=== PATIENT | female | born 1950 | race Caucasian/White ===

== ENCOUNTER 2020-04-19 09:11 | Day surgery (SDC) | payer MEDICARE ==
[2020-04-13 09:02] VITALS: BMI 27.0
[~2020-04-19 09:11] MED LIST: LACTATED RINGERS 1,000 ML IV SCH; MOXIFLOXACIN HCL 0.5% DROPS 3 ML BTL OP ONE; TETRACAINE 0.5% OPHTH (PF) DROPS 4 ML BTL OP ONE; TIMOLOL 0.5% OPHTH DROPS 5 ML BTL OP ONE
[2020-04-19 09:34] VITALS: TEMP 97.4
[2020-04-19] MEDS: CYCLOPENTOLATE 1% OPHTH SOLN 2 ML BTL OP ONE ×3 (09:35→09:47)
[2020-04-19] MEDS: PHENYLEPHRINE 2.5% OPHTH DRP 2ML OP NR ×3 (09:38→09:50)
[2020-04-19] MEDS ORDERED: HYALURONATE SODIUM INTRAOCULAR 1 EACH SYRINGE (12MG/ML) INTRAOCULA ONE (10:21)
[2020-04-19] MEDS ORDERED: MOXIFLOXACIN HCL 0.5% DROPS 3 ML BTL RIGHT EYE ONE (10:22)
[2020-04-19] MEDS ORDERED: BALANCED SALT IRRIG SOLN COMB2 15 ML IRRIG.SOLN IRRIGATION ONE (10:22)
[2020-04-19] MEDS ORDERED: TIMOLOL 0.5% OPHTH SOLN (PF) 0.2 ML DROPERETTE RIGHT EYE ONE (10:22)
[2020-04-19] MEDS ORDERED: LIDOCAINE 1% (PF) 10MG/ML VIAL SQ ONE (10:22)
[2020-04-19] MEDS ORDERED: fentaNYL (PF) 50 MCG/ML 2 ML AMP ONE (10:23)
[2020-04-19] MEDS ORDERED: MIDAZOLAM 2 MG/2 ML VIAL ONE (10:23)
[2020-04-19] MEDS ORDERED: EPINEPHrine (PF) 0.3 ML in BALANCED SALT IRRIG SOLN COMB2 500 ML IRRIGATION ONE (10:24)
[2020-04-19] MEDS ORDERED: TETRACAINE 0.5% OPHTH (PF) DROPS 4 ML BTL RIGHT EYE ONE (10:46)
--- NOTE | 2020-04-19 10:50 | P.OP ---
Date of Procedure: 04/19/20 Preoperative Diagnosis: NS & CS Postoperative Diagnosis: same Procedure(s) Performed: PIOL, OD Implants: MX60 25.00 Anesthesia: MAC Surgeon: He Heart Pathology: none sent Condition: stable Disposition: same day Indications for Procedure: blurry vision Operative Findings: no complications
[2020-04-19 10:56] VITALS: RESP 16
[2020-04-19 11:08] VITALS: BP 130/72; PULSE 70
--- NOTE | 2020-04-20 00:15 | OP ---
OPERATIVE REPORT DATE OF SURGERY: 04/19/2020 SURGEON: He Heart MD PREOPERATIVE DIAGNOSIS: Nuclear sclerosis, cortical sclerosis. POSTOPERATIVE DIAGNOSIS: Nuclear sclerosis, cortical sclerosis. OPERATION: Phacoemulsification of cataract and intraocular lens implant right eye. ESTIMATED BLOOD LOSS: Zero. SPECIMEN TAKEN: None. NARRATIVE: After obtaining the appropriate consent, the patient was brought to the operating room where the patient was placed under cardiac monitoring and prepped and draped in the usual sterile manner. At the 11 o'clock position a 15 degree super sharp blade was used to create a paracentesis followed by instillation of 1% Xylocaine MPF 50:50 mix with BSS into the anterior chamber. This was followed by Amvisc to stabilize the anterior chamber. At the 9 o'clock position a self-sealing corneal flap incision was created using 2.8 mm joselo keratome. A cystotome was used to initiate a continuous tear capsulorrhexis which was completed with the Utrata forceps. A Binkhorst cannula was used to hydrodissect the lens nucleus followed by hydrodelineation. Phacoemulsification of the lens was performed utilizing phaco chop in 14.65 seconds at % power. The remaining cortical material was removed using the irrigation aspiration mode followed by additional 1% Xylocaine MPF into the anterior chamber followed by viscoelastic to stabilize the capsular bag. A [employer]ch [employer] Lomb MX60, 25.0 diopters posterior chamber lens was placed into the capsular bag without difficulty. The remaining viscoelastic material was removed from the anterior chamber with the irrigation/aspiration. Balanced salt solution was used to normalize the intraocular pressure. The incision was checked for watertight integrity. The patient then received two drops of 0.5% timolol followed by two drops Vigamox, was lightly patched and shielded in the usual manner. There were no complications from the procedure. The patient tolerated the procedure well and was returned to recovery in good condition. MMODL / IJN: [id number] /
== END 2020-04-19 11:21 | disposition home or self-care (01) ==
LOC: OR 09:11
PROVIDERS: ATTEND Ophthalmology
DX: H25.13 Age-related nuclear cataract, bilateral (principal); H25.013 Cortical age-related cataract, bilateral; H00.023 Hordeolum internum right eye, unspecified eyelid; H00.026 Hordeolum internum left eye, unspecified eyelid; H04.129 Dry eye syndrome of unspecified lacrimal gland; H52.03 Hypermetropia, bilateral; H52.4 Presbyopia; Z83.518 Family history of other specified eye disorder; Z80.9 Family history of malignant neoplasm, unspecified; Z82.49 Family history of ischemic heart disease and other diseases of the circulatory system; Z83.49 Family history of other endocrine, nutritional and metabolic diseases; Z87.891 Personal history of nicotine dependence; Z97.3 Presence of spectacles and contact lenses; Z88.2 Allergy status to sulfonamides; Z90.49 Acquired absence of other specified parts of digestive tract; Z98.890 Other specified postprocedural states; Z90.89 Acquired absence of other organs; Z85.828 Personal history of other malignant neoplasm of skin
CPT/HCPCS: 66984; C1780; J2250; J0171; J3010; J2001

== ENCOUNTER 2020-05-03 10:00 | Day surgery (SDC) | payer MEDICARE ==
[2020-04-26 15:53] VITALS: BMI 27.0
[~2020-05-03 10:00] MED LIST changes: +LIDOCAINE 1% (10MG/ML) FOR IV START INTRADERMA PRN
[2020-05-03] MEDS: CYCLOPENTOLATE 1% OPHTH SOLN 2 ML BTL OP ONE ×3 (10:21→10:33)
[2020-05-03] MEDS: PHENYLEPHRINE 2.5% OPHTH DRP 2ML OP NR ×3 (10:24→10:37)
[2020-05-03 10:28] VITALS: TEMP 97.2
[2020-05-03] MEDS ORDERED: MIDAZOLAM 2 MG/2 ML VIAL ONE (11:19)
[2020-05-03] MEDS ORDERED: fentaNYL (PF) 50 MCG/ML 2 ML AMP ONE (11:19)
[2020-05-03] MEDS ORDERED: EPINEPHrine (PF) 0.3 ML in BALANCED SALT IRRIG SOLN COMB2 500 ML IRRIGATION ONE (11:32)
[2020-05-03] MEDS ORDERED: BALANCED SALT IRRIG SOLN COMB2 15 ML IRRIG.SOLN INTRAOCULA ONE (11:33)
[2020-05-03] MEDS ORDERED: HYALURONATE SODIUM INTRAOCULAR 1 EACH SYRINGE (12MG/ML) INTRAOCULA ONE (11:33)
[2020-05-03] MEDS ORDERED: LIDOCAINE 1% (PF) 10MG/ML VIAL MISCELLANE ONE (11:33)
--- NOTE | 2020-05-03 11:47 | P.OP ---
Date of Procedure: 05/03/20 Preoperative Diagnosis: NS & CS Postoperative Diagnosis: same Procedure(s) Performed: PIOL, OS Implants: MX60 24.50 Anesthesia: MAC Surgeon: He Heart Pathology: none sent Condition: stable Disposition: same day Indications for Procedure: blurry vision Operative Findings: no complications
[2020-05-03 11:52] VITALS: RESP 17
[2020-05-03 12:00] VITALS: PULSE 78
[2020-05-03 12:02] VITALS: BP 133/61
--- NOTE | 2020-05-03 23:43 | OP ---
OPERATIVE REPORT DATE OF SURGERY: May 03, 2020 SURGEON: Dr. He Heart PREOPERATIVE DIAGNOSES: Nuclear sclerosis, cortical sclerosis. POSTOPERATIVE DIAGNOSES: Nuclear sclerosis, cortical sclerosis. OPERATION: Phacoemulsification of cataract and intraocular lens implant of the left eye. ESTIMATED BLOOD LOSS: Zero. SPECIMEN TAKEN: None. NARRATIVE: After obtaining the appropriate consent, the patient was brought to the operating room where the patient was placed under cardiac monitoring and prepped and draped in the usual sterile manner. At the 5 o'clock position a 15 degree super sharp blade was used to create a paracentesis followed by instillation of 1% Xylocaine MPF 50:50 mix with BSS into the anterior chamber. This was followed by Amvisc to stabilize the anterior chamber. At the 3 o'clock position a self-sealing corneal flap incision was created using 2.8 mm joselo keratome. A cystotome was used to initiate a continuous tear capsulorrhexis which was completed with the Utrata forceps. A Binkhorst cannula was used to hydrodissect the lens nucleus followed by hydrodelineation. Phacoemulsification of the lens was performed utilizing phaco chop in 9.7 seconds at 14% power. The remaining cortical material was removed using the irrigation aspiration mode followed by additional 1% Xylocaine MPF into the anterior chamber followed by viscoelastic to stabilize the capsular bag. A Bausch [employer] Lomb MX60E 24.5 diopters posterior chamber lens was placed into the capsular bag without difficulty. The remaining viscoelastic material was removed from the anterior chamber with the irrigation/aspiration. Balanced salt solution was used to normalize the intraocular pressure. The incision was checked for watertight integrity. The patient then received two drops of 0.5% timolol followed by two drops Vigamox, was lightly patched and shielded in the usual manner. There were no complications from the procedure. The patient tolerated the procedure well and was returned to recovery in good condition. MMODL / IJN: [id number] /
== END 2020-05-03 12:22 | disposition home or self-care (01) ==
LOC: OR 10:00
PROVIDERS: ATTEND Ophthalmology
DX: H25.12 Age-related nuclear cataract, left eye (principal); H25.012 Cortical age-related cataract, left eye; H52.03 Hypermetropia, bilateral; H04.129 Dry eye syndrome of unspecified lacrimal gland; H00.023 Hordeolum internum right eye, unspecified eyelid; H00.026 Hordeolum internum left eye, unspecified eyelid; H52.4 Presbyopia; Z98.41 Cataract extraction status, right eye; Z96.1 Presence of intraocular lens; Z88.2 Allergy status to sulfonamides; Z90.49 Acquired absence of other specified parts of digestive tract; Z98.891 History of uterine scar from previous surgery; Z90.89 Acquired absence of other organs; Z98.890 Other specified postprocedural states; Z79.899 Other long term (current) drug therapy; Z82.49 Family history of ischemic heart disease and other diseases of the circulatory system; Z83.518 Family history of other specified eye disorder; Z80.9 Family history of malignant neoplasm, unspecified; Z97.3 Presence of spectacles and contact lenses
CPT/HCPCS: 66984; C1780; J2250; J0171; J3010; J2001

== ENCOUNTER → 2021-02-16 | Outpatient (CLI) | payer MEDICARE ==
--- NOTE | 2021-02-19 04:05 | US ---
EXAMINATION TYPE: US carotid duplex BILAT DATE OF EXAM: 02/16/2021 COMPARISON: NONE CLINICAL HISTORY: 70-year-old female R42 dizziness, E78.1 Hypertriglyceridemia. Intermittent dizzy ep isodes for a year TECHNIQUE: Carotid duplex ultrasound examination. Indirect Doppler criteria was utilized. FINDINGS: EXAM MEASUREMENTS: RIGHT: Peak Systolic Velocity (PSV) cm/sec ----- Right CCA: 98.7 ----- Right ICA: 85.1 ----- Right ECA: 92.6 ICA/CCA ratio: 0.8 RIGHT: End Diastole cm/sec ----- Right CCA: 30.5 ----- Right ICA: 33.2 ----- Right ECA: 24.8 LEFT: Peak Systolic Velocity (PSV) cm/sec ----- Left CCA: 94.7 ----- Left ICA: 97.6 ----- Left ECA: 113 ICA/CCA ratio: 1.0 LEFT: End Diastole cm/sec ----- Left CCA: 36.2 ----- Left ICA: 39.0 ----- Left ECA: 32.1 VERTEBRALS (direction of flow): Right Vertebral: Antegrade Left Vertebral: Antegrade Rhythm: Normal Slot Key Person notes: Mild homogeneous plaque with no significant stenosis IMPRESSION: No hemodynamically significant internal carotid artery stenosis on either side. Criteria for Assigning % of Stenosis / Diameter reduction (Estimation based on the indirect measurements of the internal carotid artery velocities (ICA PSV). 1. Normal (no stenosis)=ICA PSV < 125 cm/s: ratio < 2.0: ICA EDV<40 cm/s. 2. Less than 50% stenosis=ICA PSV < 125 cm/s: ratio < 2.0: ICA EDV<40 cm/s. 3. 50 to 69% stenosis=ICA PSV of 125 to 230 cm/s: ration 2.0 ? 4.0: ICA EDV 40-100 cm/s. 4. Greater than 70% stenosis to near occlusion= ICA PSV > 230 cm/s: ratio > 4.0: ICA EDV > 100 cm/s. 5. Near occlusion= ICA PSV velocities may be low or undetectable: variable ratio and ICA EDV. 6. Total occlusion=unable to detect flow.
== END | disposition home or self-care (01) ==
LOC: RADUSWWP 15:34
PROVIDERS: ATTEND Family Medicine
DX: R42 Dizziness and giddiness (principal); E78.1 Pure hyperglyceridemia
CPT/HCPCS: 93880

== ENCOUNTER → 2021-03-28 | Outpatient (CLI) | payer MEDICARE ==
--- NOTE | 2021-03-28 12:08 | XR ---
EXAMINATION TYPE: XR shoulder complete RT DATE OF EXAM: 03/28/2021 CLINICAL HISTORY: Neck pain radiating into shoulder TECHNIQUE: Three views of the right shoulder are obtained. COMPARISON: None. FINDINGS: There is no acute fracture/dislocation evident in the right shoulder. There are degenerati ve changes of the right acromioclavicular joint. IMPRESSION: There is no acute fracture/dislocation evident in the right shoulder. There are degenerative changes of the right acromioclavicular joint.
--- NOTE | 2021-03-28 12:10 | XR ---
EXAMINATION TYPE: XR cervical spine comp DATE OF EXAM: 03/28/2021 TECHNIQUE: Frontal, lateral, oblique, swimmers, and open mouth view of the cervical spine are obtaine d. HISTORY: M54.2 Cervicalgia Neck pain, M25.511 right shoulde COMPARISON: None FINDINGS: Vertebral body heights are preserved. There is mild retrolisthesis of C3 on 4 measuring 4 mm. No enla rgement of the prevertebral soft tissues. There is endplate sclerosis and osteophytosis at C5-7. Ther e is uncovertebral and facet arthropathy with bony encroachment upon the right C6-7 and left C3-4 and C6-7 neural foramen. IMPRESSION: Multilevel disc disease and osteoarthritic changes of the cervical spine with mild retrolisthesis of C3 on 4.
== END | disposition home or self-care (01) ==
LOC: RADXRMAIN 11:15
PROVIDERS: ATTEND Family Medicine
DX: M19.011 Primary osteoarthritis, right shoulder (principal); M50.123 Cervical disc disorder at C6-C7 level with radiculopathy; M47.22 Other spondylosis with radiculopathy, cervical region; M43.12 Spondylolisthesis, cervical region
CPT/HCPCS: 72050

== ENCOUNTER → 2023-03-27 | Outpatient (CLI) | payer MEDICARE ==
--- NOTE | 2023-03-27 10:01 | XR ---
EXAMINATION TYPE: XR lumbosacral spine min 4V DATE OF EXAM: 03/27/2023 CLINICAL HISTORY: pain COMPARISON: NONE TECHNIQUE: Frontal, lateral, and oblique images of the lumbar spine are obtained. FINDINGS: There are 5 lumbar type vertebral bodies identified. The lumbar spine shows satisfactory alignment without evidence of acute fracture or dislocation. Vertebral body heights are within normal limits. Severe multilevel degenerative disc space narrowing and spondylosis. Severe lower lumbar fac et joint arthropathy. The overlying soft tissue appears unremarkable. IMPRESSION: No acute fracture or dislocation is seen in the lumbar spine.ICD 10 NO FRACTURE, INITIAL EVALUATION
== END | disposition home or self-care (01) ==
LOC: RADXRMAIN 09:41
PROVIDERS: ATTEND Family Medicine
DX: M54.41 Lumbago with sciatica, right side (principal); M54.42 Lumbago with sciatica, left side; M79.601 Pain in right arm; M79.602 Pain in left arm
CPT/HCPCS: 72110

== ENCOUNTER → 2023-05-15 | Outpatient (CLI) | payer MEDICARE ==
--- NOTE | 2023-05-15 18:16 | XR ---
EXAMINATION TYPE: XR knee 4V RT DATE OF EXAM: 05/15/2023 COMPARISON: NONE HISTORY: 73-year-old female M25.561, right knee pain and swelling. TECHNIQUE: 4 views FINDINGS: Anterior soft tissue swelling. Extensor mechanism is intact. No joint effusion. There is mi ld joint space narrowing along the lateral aspect of the patellofemoral compartment. Mild degenerativ e spurring medial and patellofemoral compartments. No acute fracture, subluxation, dislocation. IMPRESSION: 1. Mild anterior soft tissue swelling. No acute osseous abnormality seen. 2. Mild patellofemoral compartmental OA. 3. Additional mild degenerative spurring in the medial compartment.
== END | disposition home or self-care (01) ==
LOC: RADXRMAIN 11:02
PROVIDERS: ATTEND Nurse Practitioner Family
DX: M17.11 Unilateral primary osteoarthritis, right knee (principal)

== ENCOUNTER → 2023-05-26 | Outpatient (CLI) | payer MEDICARE ==
--- NOTE | 2023-05-26 13:27 | MM ---
Reason for Exam: Screening (asymptomatic). Last screening mammogram was performed 12 month(s) ago. Patient History: Menarche at age 11. First Full-Term at age 18. Postmenopausal. Maternal aunt had breast cancer. Risk Values: Rhoda 5 year model risk: 1.3%. NCI Lifetime model risk: 3.0%. Prior Study Comparison: 07/01/2006 Bilateral Screening Mammogram, [facility]. 07/08/2006 Left Diagnostic Mammogram, [facility]. 07/20/2007 Bilateral Screening Mammogram, [facility]. 05/18/2021 Bilateral MG 3D screening mammo w/cad, [facility]. 05/24/2022 Bilateral Screening Mammogram, [facility]. Tissue Density: There are scattered fibroglandular densities. Findings: Analyzed By CAD. Asymmetry left breast anterior middle depth cc view not well appreciated on prior 5.4 cm nipple posterior nipple line. Right: There is no suspicious group of microcalcifications or new suspicious mass. Overall Assessment: Incomplete: need additional imaging evaluation, BI-RAD 0 Management: Diagnostic Mammogram of the left breast. [facility] will attempt to contact patient to return for supplemental views and ultrasound if indicated. Patient should continue monthly self-breast exams. A clinical breast exam by your physician is recommended on an annual basis. This exam should not preclude additional follow-up of suspicious palpable abnormalities. Note on Rhoda scores and lifetime risk: 1. A Rhoda score greater than 3% is considered moderate risk. If this is the case, consider specialist referral to assess eligibility for a risk reducing agent. 2. If overall lifetime risk for the development of breast cancer is 20% or higher, the patient may qualify for future screening with alternating mammogram and breast MRI. Electronically signed and approved by: Anish Veliz DO
== END | disposition home or self-care (01) ==
LOC: RADMAMWWP 09:45
PROVIDERS: ATTEND Surgery
DX: Z12.31 Encounter for screening mammogram for malignant neoplasm of breast (principal); Z78.0 Asymptomatic menopausal state; Z80.3 Family history of malignant neoplasm of breast
CPT/HCPCS: 77063; 77067

== ENCOUNTER → 2023-05-29 | Outpatient (CLI) | payer MEDICARE ==
--- NOTE | 2023-05-30 09:47 | MM ---
Reason for Exam: Additional evaluation requested from abnormal screening. Last screening mammogram was performed less than 1 month ago. Patient History: Menarche at age 11. First Full-Term at age 18. Postmenopausal. Maternal aunt had breast cancer. Risk Values: Rhoda 5 year model risk: 1.3%. NCI Lifetime model risk: 3.0%. Prior Study Comparison: 05/18/2021 Bilateral MG 3D screening mammo w/cad, [facility]. 05/24/2022 Bilateral Screening Mammogram, [facility]. 05/26/2023 Bilateral MG 3D screening mammo w/cad, [facility]. Tissue Density: Left: There are scattered fibroglandular densities. Findings: Analyzed By CAD. Density left breast at the 12:00 position is much improved following spot compression imaging however precautionary six-month follow-up is recommended. Overall Assessment: Probably benign, BI-RAD 3 Management: Diagnostic Mammogram of the left breast in 6 months. . Results were given to the patient verbally at the time of exam. Patient should continue monthly self-breast exams. A clinical breast exam by your physician is recommended on an annual basis. This exam should not preclude additional follow-up of suspicious palpable abnormalities. Note on Rhoda scores and lifetime risk: 1. A Rhoda score greater than 3% is considered moderate risk. If this is the case, consider specialist referral to assess eligibility for a risk reducing agent. 2. If overall lifetime risk for the development of breast cancer is 20% or higher, the patient may qualify for future screening with alternating mammogram and breast MRI. Electronically signed and approved by: Eddie Mercer M.D. Radiologis
== END | disposition home or self-care (01) ==
LOC: RADMAMWWP 13:34
PROVIDERS: ATTEND Surgery
DX: R92.8 Other abnormal and inconclusive findings on diagnostic imaging of breast (principal); Z78.0 Asymptomatic menopausal state; Z80.3 Family history of malignant neoplasm of breast
CPT/HCPCS: 77065; G0279; 77061

== ENCOUNTER → 2023-05-29 | Outpatient (CLI) | payer MEDICARE ==
[2023-05-29 14:36] VITALS: BP 122/71; PULSE 72; RESP 16; TEMP 98.7
--- NOTE | 2023-05-29 15:00 | P.PN ---
Subjective Progress Note Date: 05/29/23 pain right breast Jaimee is a 73 year old white female seen in consultation for Tamra Tracy regarding breast pain on 11-08-22. She had a bilateral mammogram 05-24-22 which led to a left breast ultrasound on 06-04-22, this led to a repeat ultrasound on 09-13-22. Her repeat ultrasound was felt to be BIRAD 2. She was having an aching sensation in her left breast in August 2022, this has improved. It was intermittent. It did not spread any place. It was more positional if she laid on that side. She did have a fall where she hit her left breast in the lateral aspect several months prior. She had bruising and ecchymosis at that time. She has never had any surgery on her breast. She does not feel any lumps in her breast at this time. She is not complaining of any nipple discharge. Discomfort that she had a left breast is less constant and has improved. bilateral mammogram on 05-26-23 BIRAD 0 diagnostic left breast mammogram requested Caffiene: occasional nicotine: none stopped in 1990; used to smoke 2 packs/week for 10 years chocolate: occasional BCP: used them for 15 years, stopped about 32 hormones: none Family History: paternal grandfather: cancer ? type Hormonal History: menarche: 11 , breast fed: no, age at first : 18 menopause: 52 Surgical History: appy tonsil knee 2 c-sections resection of burst diverticuli/repeat surgery after the first for infection Medical History: none Social History: nicotine: as above alcohol: occasional drugs: none - Constitutional Constitutional: Denies chills, Denies fever - EENT Eyes: denies blurred vision, denies pain Ears: deny: decreased hearing, tinnitus Ears, nose, mouth and throat: Denies headache, Denies sore throat - Breasts Breasts: bilateral: as per HPI - Cardiovascular Cardiovascular: Denies chest pain, Denies shortness of breath - Gastrointestinal Gastrointestinal: Denies abdominal pain, Denies diarrhea, Denies nausea, Denies vomiting - Genitourinary (Female) Genitourinary: Denies dysuria, Denies hematuria - Menstruation Menstruation: Reports as per HPI - Musculoskeletal Comment: arthritis - Integumentary Integumentary: Denies pruritus, Denies rash - Neurological Neurological: Denies numbness, Denies weakness - Psychiatric Psychiatric: Denies anxiety, Denies depression - Endocrine Endocrine: Denies fatigue, Denies weight change - Hematologic/Lymphatic Comment: none - Allergic/Immunologic Allergic/Immunologic: Reports seasonal allergies Past Medical History Additional Past Medical History / Comment(s): hx skin cancer, History of Any Multi-Drug Resistant Organisms: None Reported Past Surgical History: Appendectomy, Section, Orthopedic Surgery, Tonsillectomy, Tubal Ligation Additional Past Surgical History / Comment(s): rt knee surgery, "surgery to re move burst diverticuli x 2 " Past Anesthesia/Blood Transfusion Reactions: No Reported Reaction Smoking Status: Former smoker - Past Family History Mother Family Medical History: No Reported History Medications and Allergies Home Medications Medication Instructions Recorded Confirmed Type C,E,Zinc,Copper 11/Xzkka3l/Lut 1 each PO DAILY 04/13/20 11/08/22 History [Ocuvite Adult 50 Plus Softgel] Calcium Carbonate/Vitamin D3 2 each PO DAILY 04/13/20 11/08/22 History [Calcium 600-Vit D3 800 Caplet] Cetirizine HCl [Zyrtec] 10 mg PO DAILY 04/13/20 11/08/22 History Glucosam/Kareem-Msm1/C/Ruperto/Bosw 2 each PO DAILY 04/13/20 11/08/22 History [Glucosamine-Chondroitin Tablet] L.acidoph,Paracasei, B.lactis 1 each PO DAILY 04/13/20 11/08/22 History [Probiotic] Magnesium 200 mg PO DAILY 04/13/20 11/08/22 History Multivit-Min/Iron/Folic/Lutein 1 each PO DAILY 04/13/20 11/08/22 History [Centrum Silver Women Tablet] Kingsford-3 Fatty Acids [Kingsford-3] 1,000 mg PO DAILY 04/13/20 11/08/22 History Allergies Allergy/AdvReac Type Severity Reaction Status Date / Time Sulfa (Sulfonamide Allergy Rash/Hives Verified 05/03/20 10:21 Antibiotics) Objective - Vital Signs Vital signs: Vital Signs Temp 98.7 F 05/29/23 14:31 Pulse 72 05/29/23 14:31 Resp 16 05/29/23 14:31 BP 122/71 05/29/23 14:31 Pulse Ox 95 05/29/23 14:31 FiO2 Intake & Output 05/28/23 05/29/23 05/29/23 18:59 06:59 18:59 Weight 68.039 kg - Constitutional General appearance: Present: cooperative - EENT Eyes: Present: EOMI ENT: Present: hearing grossly normal - Neck Neck: Present: normal ROM - Respiratory Respiratory: bilateral: CTA - Cardiovascular Rhythm: regular Heart sounds: normal: S1, S2 - Gastrointestinal General gastrointestinal: Present: soft - Integumentary Integumentary: Present: normal turgor - Musculoskeletal Musculoskeletal: Present: gait normal - Psychiatric Psychiatric: Present: A&O x's 3, appropriate affect, intact judgment & insight - Additional findings Additional findings: Breast Exam: BRA: 42C Inspection: Biateral grade 2/3 ptosis; fungal infection under her left breast Patient: Right breast: Multi-positional exam fibrocystic changes no dominant masses or nodules of concern Right axilla: No adenopathy of concern Left breast: Multi-positional exam fibrocystic changes, mild tenderness to palpation in the upper outer quadrant region but no discrete masses or nodules of concern appreciated Left axilla: No adenopathy of concern Examination of the skin of the left breast . Her last examination revealed a small approximately 8 mm area of nodularity which was being followed by dermatology and has gone away and there not worried about it at this time. Assessment and Plan Assessment: Impression: Left breast mastodynia improved Bilateral mammogram [id number]. This led to [place] [address] BIRAD 3 repeat left breast mammogram in 6 months. Plan: left breast mammogram in 6 months with appointment at that time bilateral mammogram in 1 yearr Patient to follow sooner any questions or concerns nystatin under left breast Patient understands and agrees with the treatment plan. CC: Antoni Flores
== END ==
LOC: WWCWWP 13:37
PROVIDERS: ATTEND Surgery
DX: N64.4 Mastodynia (principal); Z85.828 Personal history of other malignant neoplasm of skin; Z87.891 Personal history of nicotine dependence; Z88.1 Allergy status to other antibiotic agents; Z88.2 Allergy status to sulfonamides

== ENCOUNTER → 2023-09-22 | Outpatient (CLI) | payer MEDICARE ==
--- NOTE | 2023-09-22 11:23 | XR ---
EXAMINATION TYPE: XR chest 2V DATE OF EXAM: 09/22/2023 11:15 AM CLINICAL INDICATION:Female, 73 years old with history of PRE SURG TESTING; [facility] COMPARISON: None TECHNIQUE: XR chest 2V Frontal and lateral views of the chest. FINDINGS: Lungs/Pleura: There is no evidence of pleural effusion, focal consolidation, or pneumothorax. Pulmonary vascularity: Unremarkable. Heart/mediastinum: Cardiomediastinal silhouette is unremarkable. Musculoskeletal: No acute osseous pathology. Other findings: None IMPRESSION: No acute cardiopulmonary disease/process.
[2023-09-22 12:18] LABS: INR 0.9 (<1.2); Partial Thromboplastin Time 23.5 sec (22.0-30.0); Prothrombin Time 10.3 sec (10.0-12.5)
[2023-09-22 15:51] LABS: Basophils # (A) 0.03 X 10*3/uL (0.00-0.10); Basophils % (A) 0.4 %; Eosinophils # (A) 0.08 X 10*3/uL (0.04-0.35); HCT 42.8 % (37.2-46.3); HGB 14.2 g/dL (12.0-15.0); Lymphocytes # (A) 1.94 X 10*3/uL (0.90-5.00); Lymphocytes % (A) 24.9 %; MCH 32.5 pg (27.0-32.0); MCHC 33.2 g/dL (32.0-37.0); MCV 97.9 FL (80.0-97.0); Mean Platelet Volume 9.3 FL (9.5-12.2); Monocytes # (A) 0.46 X 10*3/uL (0.20-1.00); Monocytes % (A) 5.9 %; NRBC Per 100 WBC 0 X 10*3/uL (0.00-0.01); Neutrophils # (A) 5.27 X 10*3/uL (1.80-7.70); Neutrophils % (A) 67.5 %; Platelet Count 313 X 10*3/uL (140-440); RBC 4.37 X 10*6/uL (4.10-5.20); RDW 12.7 % (11.5-14.5)
[2023-09-22 16:14] LABS: Appearance,Urine Clear (Clear); Bilirubin,Urine Negative (Negative); Blood,Urine Negative (Negative); Color,Urine Yellow (Yellow); Ketones,Urine Negative (Negative); Nitrite,Urine Negative (Negative); PH, Urine 6.5; Specific Gravity,Urine 1.008 (1.001-1.030); Urobilinogen,Urine 0.2 E.U./DL
[2023-09-22 16:20] LABS: Bacteria,Urine 3+ (None Seen)
[2023-09-22 16:29] LABS: ALT 19 U/L (8-44); AST 30 U/L (13-35); Albumin 4.4 g/dL (3.8-4.9); Albumin/Globulin Ratio 1.63 Ratio (1.60-3.17); Alkaline Phosphatase 97 U/L (41-126); BUN/Creat Ratio 14.17 Ratio (12.00-20.00); Blood Urea Nitrogen 8.5 mg/dL (9.0-27.0); Calcium 9.9 mg/dL (8.7-10.3); Carbon Dioxide 26.1 mmol/L (21.6-31.8); Chloride 104 mmol/L (96-109); Globulin 2.7 g/dL (1.6-3.3); Glucose 90 mg/dL (70-110); Potassium 4.6 mmol/L (3.5-5.5); Sodium 142 mmol/L (135-145); Total Bilirubin 0.6 mg/dL (0.3-1.2); Total Protein 7.1 g/dL (6.2-8.2)
== END | disposition home or self-care (01) ==
LOC: LABWHC1 10:44
PROVIDERS: ATTEND Neurological Surgery
DX: Z01.818 Encounter for other preprocedural examination (principal)
CPT/HCPCS: 36415; 71046; 80053; 81001; 85025; 85610; 85730; 87070; 93005

== ENCOUNTER → 2023-11-28 | Outpatient (CLI) | payer MEDICARE ==
--- NOTE | 2023-11-28 12:40 | MM ---
Reason for Exam: Follow-up at short interval from prior study. Last screening mammogram was performed 6 month(s) ago. Patient History: Menarche at age 11. First Full-Term at age 18. Postmenopausal. Maternal aunt had breast cancer, age 80. Risk Values: Rhoda 5 year model risk: 1.3%. NCI Lifetime model risk: 3.0%. Prior Study Comparison: 05/24/2022 Bilateral Screening Mammogram, [facility]. 05/26/2023 Bilateral MG 3D screening mammo w/cad, [facility]. 05/29/2023 Left MG 3D work up w/cad , [facility]. Tissue Density: Left: The breasts are almost entirely fatty. Findings: Analyzed By CAD. Area of concern/asymmetry compresses out on spot compression imaging. No suspicious masses, calcifications or distortions. Overall Assessment: Benign, BI-RAD 2 Management: Screening Mammogram of both breasts in 6 months. Results were given to the patient verbally at the time of exam. Patient should continue monthly self-breast exams. A clinical breast exam by your physician is recommended on an annual basis. This exam should not preclude additional follow-up of suspicious palpable abnormalities. Note on Rhoda scores and lifetime risk: 1. A Rhoda score greater than 3% is considered moderate risk. If this is the case, consider specialist referral to assess eligibility for a risk reducing agent. 2. If overall lifetime risk for the development of breast cancer is 20% or higher, the patient may qualify for future screening with alternating mammogram and breast MRI. Electronically signed and approved by: Anish Veliz DO
== END | disposition home or self-care (01) ==
LOC: RADMAMWWP 12:11
PROVIDERS: ATTEND Surgery
DX: R92.312 Mammographic fatty tissue density, left breast (principal); Z78.0 Asymptomatic menopausal state; Z80.3 Family history of malignant neoplasm of breast
CPT/HCPCS: 77065; G0279; 77061

== ENCOUNTER → 2023-12-05 | Outpatient (CLI) | payer MEDICARE ==
--- NOTE | 2023-12-05 11:28 | P.PN ---
Subjective Progress Note Date: 12/05/23 Principal diagnosis: mastodynia 12-05-23 pain left breast Jaimee is a 73 year old white female seen in consultation for Tamra Tracy regarding breast pain on 11-08-22. She had a bilateral mammogram 05-24-22 which led to a left breast ultrasound on 06-04-22, this led to a repeat ultrasound on 09-13-22. Her repeat ultrasound was felt to be BIRAD 2. She was having an aching sensation in her left breast in August 2022, this has improved. It was intermittent. It did not spread any place. It was more positional if she laid on that side. She did have a fall where she hit her left breast in the lateral aspect several months prior. She had bruising and ecchymosis at that time. She has never had any surgery on her breast. She does not feel any lumps in her breast at this time. She is not complaining of any nipple discharge. Discomfort that she had a left breast is less constant and has improved. bilateral mammogram on 05-26-23 BIRAD 0 diagnostic left breast mammogram requested; this was done on 05-29-23 and repeat in 6 months of the let breast recommended left breast mammogram 11-28-23 BIRAD 2 she is not complaining of any new lumps masses or nodules of concern in either breast She is not complaining of pain in her left breast at this time Caffiene: occasional nicotine: none stopped in 1990; used to smoke 2 packs/week for 10 years chocolate: occasional BCP: used them for 15 years, stopped about 32 hormones: none Family History: paternal grandfather: cancer ? type Hormonal History: menarche: 11 , breast fed: no, age at first : 18 menopause: 52 Surgical History: appy tonsil knee 2 c-sections resection of burst diverticuli/repeat surgery after the first for infection back fusion 6 weeks ago Medical History: none Social History: nicotine: as above alcohol: occasional drugs: none - Constitutional Constitutional: Denies chills, Denies fever - EENT Eyes: denies blurred vision, denies pain Ears: deny: decreased hearing, tinnitus Ears, nose, mouth and throat: Denies headache, Denies sore throat - Breasts Breasts: bilateral: as per HPI - Cardiovascular Cardiovascular: Denies chest pain, Denies shortness of breath - Gastrointestinal Gastrointestinal: Denies abdominal pain, Denies diarrhea, Denies nausea, Denies vomiting - Genitourinary (Female) Genitourinary: Denies dysuria, Denies hematuria - Menstruation Menstruation: Reports as per HPI - Musculoskeletal Comment: arthritis - Integumentary Integumentary: Denies pruritus, Denies rash - Neurological Neurological: Denies numbness, Denies weakness - Psychiatric Psychiatric: Denies anxiety, Denies depression - Endocrine Endocrine: Denies fatigue, Denies weight change - Hematologic/Lymphatic Comment: none - Allergic/Immunologic Allergic/Immunologic: Reports seasonal allergies Past Medical History Additional Past Medical History / Comment(s): hx skin cancer, History of Any Multi-Drug Resistant Organisms: None Reported Past Surgical History: Appendectomy, Section, Orthopedic Surgery, Tonsillectomy, Tubal Ligation Additional Past Surgical History / Comment(s): rt knee surgery, "surgery to remove burst diverticuli x 2 " Past Anesthesia/Blood Transfusion Reactions: No Reported Reaction Smoking Status: Former smoker - Past Family History Mother Family Medical History: No Reported History Medications and Allergies Home Medications Medication Instructions Recorded Confirmed Type C,E,Zinc,Copper 11/Qwkts1v/Lut 1 each PO DAILY 04/13/20 11/08/22 History [Ocuvite Adult 50 Plus Softgel] Calcium Carbonate/Vitamin D3 2 each PO DAILY 04/13/20 11/08/22 History [Calcium 600-Vit D3 800 Caplet] Cetirizine HCl [Zyrtec] 10 mg PO DAILY 04/13/20 11/08/22 History Glucosam/Kareem-Msm1/C/Ruperto/Bosw 2 each PO DAILY 04/13/20 11/08/22 History [Glucosamine-Chondroitin Tablet] L.acidoph,Paracasei, B.lactis 1 each PO DAILY 04/13/20 11/08/22 History [Probiotic] Magnesium 200 mg PO DAILY 04/13/20 11/08/22 History Multivit-Min/Iron/Folic/Lutein 1 each PO DAILY 04/13/20 11/08/22 History [Centrum Silver Women Tablet] [place]-3 Fatty Acids [[place]-3] 1,000 mg PO DAILY 04/13/20 11/08/22 History Allergies Allergy/AdvReac Type Severity Reaction Status Date / Time Sulfa (Sulfonamide Allergy Rash/Hives Verified 05/03/20 10:21 Antibiotics) Objective - Vital Signs Vital signs: Vital Signs Temp 98.4 F 12/05/23 11:10 Pulse 79 12/05/23 11:10 Resp 16 12/05/23 11:10 BP 130/76 12/05/23 11:10 Pulse Ox 96 12/05/23 11:10 FiO2 Intake & Output 12/04/23 12/05/23 12/05/23 18:59 06:59 18:59 Weight 68.039 kg - Constitutional General appearance: Present: cooperative - EENT Eyes: Present: EOMI ENT: Present: hearing grossly normal - Neck Neck: Present: normal ROM - Respiratory Respiratory: bilateral: CTA - Cardiovascular Heart sounds: normal: S1, S2 - Integumentary Integumentary: Present: normal turgor - Musculoskeletal Musculoskeletal: Present: gait normal - Psychiatric Psychiatric: Present: A&O x's 3, appropriate affect, intact judgment & insight - Additional findings Additional findings: Breast Exam: BRA: 42C Inspection: Biateral grade 2/3 ptosis; Patient: Right breast: Multi-positional exam fibrocystic changes no dominant masses or nodules of concern Right axilla: No adenopathy of concern Left breast: Multi-positional exam fibrocystic changes, mild tenderness to palpation in the upper outer quadrant region but no discrete masses or nodules of concern appreciated Left axilla: No adenopathy of concern Assessment and Plan Assessment: Impression: Left breast mastodynia improved Bilateral mammogram [id number]. This led to [place] [address] BIRAD 3 repeat left breast mammogram in 6 months, repeat left breast mammogram on 11-28-23 BIRAD 2 Plan: bilateral mammogram in 2023 with appointment at that time Patient to follow sooner any questions or concern Patient understands and agrees with the treatment plan. CC: Antoni Flores
[2023-12-05 11:38] VITALS: BP 130/76; PULSE 79; RESP 16; TEMP 98.4
== END ==
LOC: WWCWWP 10:33
PROVIDERS: ATTEND Surgery
DX: N64.4 Mastodynia (principal); Z87.891 Personal history of nicotine dependence; Z88.2 Allergy status to sulfonamides

== ENCOUNTER → 2024-05-28 | Outpatient (CLI) | payer MEDICARE ==
--- NOTE | 2024-05-30 15:06 | MM ---
Reason for Exam: Screening (asymptomatic). Last screening mammogram was performed 12 month(s) ago. Patient History: Menarche at age 11. First Full-Term at age 18. Postmenopausal. Maternal aunt had breast cancer, age 80. Risk Values: Rhoda 5 year model risk: 1.3%. NCI Lifetime model risk: 2.8%. Prior Study Comparison: 05/26/2023 Bilateral MG 3D screening mammo w/cad, [facility]. 05/29/2023 Left MG 3D work up w/cad LT, [facility]. 11/28/2023 Left MG 3D diag mammo w/cad LT, [facility]. Tissue Density: The breasts are almost entirely fatty. Findings: Analyzed By CAD. The pattern is symmetrical. Scattered benign round calcifications are present bilaterally. Chronic nodularities in the upper right breast. There is a rounded density with multiple punctate calcifications. Additional workup with ultrasound is recommended. This is measuring 0.4 cm and is located 5 cm in the nipple.The pattern is symmetrical. Scattered benign round calcifications are present bilaterally. Chronic nodularities in the upper right breast. There is a rounded density with multiple punctate calcifications upper inner 1:00 position right breast. Additional workup with ultrasound is recommended. This is measuring 0.4 cm and is located 5 cm in the nipple. Overall Assessment: Incomplete: need additional imaging evaluation, BI-RAD 0 Management: Diagnostic Breast Ultrasound of the right breast. A negative mammogram report should not preclude additional follow up of suspicious palpable abnormalities. Patient should continue monthly self breast exam. A clinical breast exam by your physician is recommended on an annual basis and results should be correlated with mammographic findings. Note on Rhoda scores and lifetime risk: 1. A Rhoda score greater than 3% is considered moderate risk. If this is the case, consider specialist referral to assess eligibility for a risk reducing agent. 2. If overall lifetime risk for the development of breast cancer is 20% or higher, the patient may qualify for future screening with alternating mammogram and breast MRI. [facility], , 05/30/2024 3:03 PM. Electronically signed and approved by: Donn Patel D.O. Radiologis
== END | disposition home or self-care (01) ==
LOC: RADMAMWWP 12:11
PROVIDERS: ATTEND Surgery
DX: Z12.31 Encounter for screening mammogram for malignant neoplasm of breast
CPT/HCPCS: 77063; 77067

== ENCOUNTER → 2024-06-01 | Outpatient (CLI) | payer MEDICARE ==
--- NOTE | 2024-06-01 14:31 | USB ---
Reason for Exam: Follow-up at short interval from prior study. Patient History: Menarche at age 11. First Full-Term at age 18. Postmenopausal. Maternal aunt had breast cancer, age 80. Risk Values: Rhoda 5 year model risk: 1.3%. NCI Lifetime model risk: 2.8%. Technique: Method: Targeted. Prior Study Comparison: 05/29/2023 Left MG 3D work up w/cad LT, [facility]. 11/28/2023 Left MG 3D diag mammo w/cad LT, [facility]. 05/28/2024 Bilateral MG 3D screening mammo w/cad, [facility]. Findings: The upper inner quadrant of the right breast, the axilla of the right breast and the retroareolar of the right breast were scanned. No solid or cystic masses are identified. Mammographic finding 0.4 cm 5 cm the nipple 12:00 position is not identified. Stereotactic core biopsy of this mass is recommended. No solid or cystic masses are identified. Mammographic finding 0.4 cm 2.5 cm the nipple 12:00 position is not identified on ultrasound. Stereotactic core biopsy of mammographic mass is recommended. Overall Assessment: Suspicious, BI-RAD 4 Management: Stereotactic Core Biopsy of the right breast. A clinical breast exam by your physician is recommended on an annual basis and results should be correlated with mammographic findings. This exam should not preclude additional follow-up of suspicious palpable abnormalities. Results were given to the patient verbally at the time of exam. [facility], , 06/01/2024 11:32 AM. Electronically signed and approved by: Donn Patel D.O. Radiologis
== END | disposition home or self-care (01) ==
LOC: RADUSWWP 10:48
PROVIDERS: ATTEND Surgery
DX: R92.8 Other abnormal and inconclusive findings on diagnostic imaging of breast

== ENCOUNTER → 2024-06-03 | Outpatient (CLI) | payer MEDICARE ==
--- NOTE | 2024-06-03 12:56 | P.PN ---
Subjective Progress Note Date: 06/03/24 Principal diagnosis: breast pain 12/05/23 Principal diagnosis: mastodynia 12-05-23 pain left breast Jaimee is a 73 year old white female seen in consultation for Tamra Tracy regarding breast pain on 11-08-22. She had a bilateral mammogram 05-24-22 which led to a left breast ultrasound on 06-04-22, this led to a repeat ultrasound on 09-13-22. Her repeat ultrasound was felt to be BIRAD 2. She was having an aching sensation in her left breast in August 2022, this has improved. It was intermittent. It did not spread any place. It was more positional if she laid on that side. She did have a fall where she hit her left breast in the lateral aspect several months prior. She had bruising and ecchymosis at that time. She has never had any surgery on her breast. She does not feel any lumps in her breast at this time. She is not complaining of any nipple discharge. Discomfort that she had a left breast is less constant and has improved. bilateral mammogram on 05-26-23 BIRAD 0 diagnostic left breast mammogram requested; this was done on 05-29-23 and repeat in 6 months of the let breast recommended left breast mammogram 11-28-23 BIRAD 2 she is not complaining of any new lumps masses or nodules of concern in either breast She is not complaining of pain in her left breast at this time 06-03-24 Bilateral mammogram on 05-28-24 BIRAD 0; right breast ultrasound on 06-01-24 recommended a right breast stero biopsy radiographs personally reviewed and discussed with DR. Kang The breast pain has resolved. She is not complaining of any new lumps masses or nodules of concern in either breast. Caffiene: occasional nicotine: none stopped in 1990; used to smoke 2 packs/week for 10 years chocolate: occasional BCP: used them for 15 years, stopped about 32 hormones: none Family History: paternal grandfather: cancer ? type Hormonal History: menarche: 11 , breast fed: no, age at first : 18 menopause: 52 Surgical History: appy tonsil knee 2 c-sections resection of burst diverticuli/repeat surgery after the first for infection back fusion Medical History: none Social History: nicotine: as above alcohol: occasional drugs: none - Constitutional Constitutional: Denies chills, Denies fever - EENT Eyes: denies blurred vision, denies pain Ears: deny: decreased hearing, tinnitus Ears, nose, mouth and throat: Denies headache, Denies sore throat - Breasts Breasts: bilateral: as per HPI - Cardiovascular Cardiovascular: Denies chest pain, Denies shortness of breath - Gastrointestinal Gastrointestinal: Denies abdominal pain, Denies diarrhea, Denies nausea, Denies vomiting - Genitourinary (Female) Genitourinary: Denies dysuria, Denies hematuria - Menstruation Menstruation: Reports as per HPI - Musculoskeletal Comment: arthritis - Integumentary Integumentary: Denies pruritus, Denies rash - Neurological Neurological: Denies numbness, Denies weakness - Psychiatric Psychiatric: Denies anxiety, Denies depression - Endocrine Endocrine: Denies fatigue, Denies weight change - Hematologic/Lymphatic Comment: none - Allergic/Immunologic Allergic/Immunologic: Reports seasonal allergies Past Medical History Additional Past Medical History / Comment(s): hx skin cancer, History of Any Multi-Drug Resistant Organisms: None Reported Past Surgical History: Appendectomy, Section, Orthopedic Surgery, Tonsillectomy, Tubal Ligation Additional Past Surgical History / Comment(s): rt knee surgery, "surgery to remove burst diverticuli x 2 " Past Anesthesia/Blood Transfusion Reactions: No Reported Reaction Smoking Status: Former smoker - Past Family History Mother Family Medical History: No Reported History Medications and Allergies Home Medications Medication Instructions Recorded Confirmed Type C,E,Zinc,Copper 11/Ysikj2c/Lut 1 each PO DAILY 04/13/20 11/08/22 History [Ocuvite Adult 50 Plus Softgel] Calcium Carbonate/Vitamin D3 2 each PO DAILY 04/13/20 11/08/22 History [Calcium 600-Vit D3 800 Caplet] Cetirizine HCl [Zyrtec] 10 mg PO DAILY 04/13/20 11/08/22 History Glucosam/Kareem-Msm1/C/Ruperto/Bosw 2 each PO DAILY 04/13/20 11/08/22 History [Glucosamine-Chondroitin Tablet] L.acidoph,Paracasei, B.lactis 1 each PO DAILY 04/13/20 11/08/22 History [Probiotic] Magnesium 200 mg PO DAILY 04/13/20 11/08/22 History Multivit-Min/Iron/Folic/Lutein 1 each PO DAILY 04/13/20 11/08/22 History [Centrum Silver Women Tablet] [place]-3 Fatty Acids [[place]-3] 1,000 mg PO DAILY 04/13/20 11/08/22 History Allergies Allergy/AdvReac Type Severity Reaction Status Date / Time Sulfa (Sulfonamide Allergy Rash/Hives Verified 05/03/20 10:21 Antibiotics) Objective - Constitutional General appearance: Present: cooperative - EENT Eyes: Present: EOMI ENT: Present: hearing grossly normal - Neck Neck: Present: normal ROM - Respiratory Respiratory: bilateral: CTA - Cardiovascular Heart sounds: normal: S1, S2 - Integumentary Integumentary: Present: normal turgor - Musculoskeletal Musculoskeletal: Present: gait normal - Psychiatric Psychiatric: Present: A&O x's 3, appropriate affect, intact judgment & insight - Additional findings Additional findings: Breast Exam: BRA: 42C Inspection: Biateral grade 2/3 ptosis; Patient: Right breast: Multi-positional exam fibrocystic changes no dominant masses or nodules of concern Right axilla: No adenopathy of concern Left breast: Multi-positional exam fibrocystic changes, mild tenderness to palpation in the upper outer quadrant region but no discrete masses or nodules of concern appreciated; fungal infection under the left breast Left axilla: No adenopathy of concern; Assessment and Plan Assessment: Impression: mastodynia resolved fungal infection under left breast bilateral mammogram 05-10-24 suspecious BIRAD 4, ultrasound 06-01-24 suspecious BIRAD 4 needs stero biopsy of the right breast Plan: sterobiopsy of the right breast nystatin under the left breast Risk of the procedure discussed with the patient. Risk include but are not limited to bleeding, infection, reaction to the anesthetic. If the tissue tissue specimen were felt to be discordant then further tissue acquisition may be necessary. She understands and wishes to proceed. Patient understands and agrees with the treatment plan. CC: Antoni Flores
[2024-06-03 13:13] VITALS: BP 116/77; PULSE 76; RESP 18; TEMP 98.3
== END ==
LOC: WWCWWP 12:35
PROVIDERS: ATTEND Surgery
DX: R92.8 Other abnormal and inconclusive findings on diagnostic imaging of breast (principal); Z87.891 Personal history of nicotine dependence; Z88.2 Allergy status to sulfonamides

== ENCOUNTER → 2024-06-11 | Day surgery (SDC) | payer MEDICARE ==
[2024-06-11 07:58] VITALS: BP 157/84; PULSE 67; RESP 16; TEMP 97.8
[2024-06-11] MEDS: ALPRAZolam 0.25 MG TAB PO PRN (08:18)
--- NOTE | 2024-06-11 09:28 | USB ---
Reason for Exam: Additional evaluation requested from prior study. Patient History: Menarche at age 11. First Full-Term at age 18. Postmenopausal. Maternal aunt had breast cancer, age 80. Risk Values: Rhoda 5 year model risk: 1.3%. NCI Lifetime model risk: 2.8%. Technique: Method: Targeted. Doppler: Color. Patient Position: Supine. Prior Study Comparison: 05/29/2023 Left MG 3D work up w/cad LT, [facility]. 11/28/2023 Left MG 3D diag mammo w/cad LT, [facility]. 05/28/2024 Bilateral MG 3D screening mammo w/cad, [facility]. Findings: The upper inner quadrant of the right breast was scanned. Hyperechoic superficial lesion in the right 1:00 position 3 cm from the nipple measuring 0.8 x 0.5 cm. Tissue diagnosis is recommended.. Overall Assessment: Suspicious, BI-RAD 4 Management: Ultrasound Core Biopsy of the right breast. A clinical breast exam by your physician is recommended on an annual basis and results should be correlated with mammographic findings. This exam should not preclude additional follow-up of suspicious palpable abnormalities. Results were given to the patient verbally at the time of exam. [facility], , 06/11/2024 9:25 AM. Electronically signed and approved by: Eddie Mercer M.D. Radiologis
--- NOTE | 2024-06-24 09:58 | MM ---
Risk Values: Rhoda 5 year model risk: 1.5%. NCI Lifetime model risk: 3.3%. Findings: Abnormal right breast mammogram Jaimee had been seen pre- attempted stereo procedure on 06-03-2024. At that time she was being seen for an abnormal right breast mammogram. She had had a bilateral mammogram on 05-28-2024 after which a right breast ultrasound was performed on 06-01-2024. The radiographs were personally reviewed with Dr. Patel who felt that she should undergo a right breast stereotactic core biopsy. The patient was seen on 06-11-2024 and the stereotactic core biopsy unit for the procedure. Placed in compression and a technology assistant film was obtained. However the lesion was very superficial. However upon compression of the breast the lesion was noted to be very superficial and it was felt that could not be performed stereotactically. This was discussed with the patient and she was seen by radiologist Dr. Stanford who proceeded to do an ultrasound-guided core biopsy. The patient will follow-up with Dr. Emanuel in 1 week. Time spent reviewing the case, examining the patient, and discussing treatment options 10 minutes. Management: Ultrasound-Guided Core Biopsy of the right breast. Electronically signed and approved by: Olive Junior M.D.
== END ==
LOC: RADMAMWWP 07:37
PROVIDERS: ATTEND Surgery
DX: R92.8 Other abnormal and inconclusive findings on diagnostic imaging of breast (principal); Z78.0 Asymptomatic menopausal state; Z80.3 Family history of malignant neoplasm of breast

== ENCOUNTER → 2024-06-11 | Day surgery (SDC) | payer MEDICARE ==
--- NOTE | 2024-06-18 16:20 | P.PN ---
Subjective Progress Note Date: 06/11/24 Principal diagnosis: Abnormal right breast mammogram Jaimee had been seen pre- attempted stereo procedure on 06-03-2024. At that time she was being seen for an abnormal right breast mammogram. She had had a bilateral mammogram on 05-28-2024 after which a right breast ultrasound was performed on 06-01-2024. The radiographs were personally reviewed with Dr. Patel who felt that she should undergo a right breast stereotactic core biopsy. The patient was seen on 06-11-2024 and the stereotactic core biopsy unit for the procedure. Placed in compression and a crm business analyst film was obtained. However the lesion was very superficial. However upon compression of the breast the lesion was noted to be very superficial and it was felt that could not be performed stereotactically. This was discussed with the patient and she was seen by radiologist Dr. Stanford who proceeded to do an ultrasound-guided core biopsy. The patient will follow-up with Dr. Emanuel in 1 week. Time spent reviewing the case, examining the patient, and discussing treatment options 10 minutes.
--- NOTE | 2024-06-21 09:31 | MM ---
Reason for Exam: Post Procedure Mammogram. Last screening mammogram was performed less than 1 month ago. Patient History: Menarche at age 11. First Full-Term at age 18. Postmenopausal. Maternal aunt had breast cancer, age 80. Risk Values: Rhoda 5 year model risk: 1.3%. NCI Lifetime model risk: 2.8%. Prior Study Comparison: 05/24/2022 Bilateral Screening Mammogram, [facility]. 05/29/2023 Left MG 3D work up w/cad LT, [facility]. 11/28/2023 Left MG 3D diag mammo w/cad LT, [facility]. 05/28/2024 Bilateral MG 3D screening mammo w/cad, [facility]. 06/01/2024 Right US breast workup limited RT, [facility]. Tissue Density: Right: The breasts are almost entirely fatty. Pathology Description: Location: 1 o'clock. Marker Left Behind. Needle Type: Adomos Cores: 3 Gauge: 12 The procedure of ultrasound guided core biopsy was explained to the patient. Benefits, alternatives, and risks were discussed. An informed consent was then obtained. The patient was placed in supine positioning for imaging and for the procedure. The overlying skin was prepped and draped in usual sterile fashion. Lidocaine buffered with bicarbonate was used as anesthetic into the skin and subcutaneous tissue up to area of concern in the right 1:00 breast 3 cm from the nipple. A alfonzo was made with surgical scalpel. Under ultrasound guidance, a 12-gauge vacuum assisted biopsy gun device was used to obtain 3 core samples. Following this, a biopsy clip was left in lesion. The patient tolerated the procedure well without any immediate complication. The patient was kept in the radiology department for short stay after the procedure and then discharged home in stable condition. Postprocedure mammogram: The patient was transferred to mammography for physician ordered post procedure mammogram for clip placement verification. Impression: Successful, uncomplicated ultrasound guided core biopsy of area of concern in the right breast, full pathology results to follow. [facility], , 06/11/2024 12:31 PM. Pathology Results: Result: Benign, Fat necrosis. RIGHT BREAST, 1:00 3 CM FROM NIPPLE, ULTRASOUND GUIDED NEEDLE CORE BIOPSY: Fat necrosis/scar with calcification, chronic inflammation and histiocytes. Negative for malignancy. See note. Notes CK AE1/3 immunostain performed on block A1 and evaluated with an appropriate positive control demonstrates no evidence of invasive malignancy. The results confirm the diagnosis of the specimen as benign. Overall Assessment: Benign Assessment: MG diagnostic mammo RT wo CAD - Right: Benign, BI-RAD 2. Management: Diagnostic Breast Ultrasound of the right breast in 6 months. Electronically signed and approved by: Eddie Mercer M.D. Radiologis
== END ==
LOC: RADUSWWP 09:36
PROVIDERS: ATTEND Surgery
DX: N63.10 Unspecified lump in the right breast, unspecified quadrant (principal)
CPT/HCPCS: 77065; 88305; 88342

== ENCOUNTER → 2024-06-18 | Outpatient (CLI) | payer MEDICARE ==
[2024-06-18 11:17] VITALS: BP 136/71; PULSE 81; RESP 16; TEMP 98.1
--- NOTE | 2024-06-18 11:43 | P.PN ---
Subjective Progress Note Date: 06/18/24 Principal diagnosis: scar tissue right breast Jaimee was scheduled for a stero biopsy of the right breast on 06-11-24. The lesion on the stero unit was too superficial to do the procedure and it was changed to an ultrasound guided core biopsy. She had this done on 06-11-24, and the radiographs were reviewed with the radiologist Dr. Stanford. The pathology was fat necrosis and scar, and felt to be benign concordant. Post procedure she has done well. Objective - Vital Signs Vital signs: Vital Signs Temp 98.1 F 06/18/24 11:15 Pulse 81 06/18/24 11:15 Resp 16 06/18/24 11:15 BP 136/71 06/18/24 11:15 Pulse Ox 97 06/18/24 11:15 FiO2 Intake & Output 06/17/24 06/18/24 06/18/24 18:59 06:59 18:59 Weight 68.039 kg - Constitutional General appearance: Present: cooperative - EENT ENT: Present: hearing grossly normal - Neck Neck: Present: normal ROM - Respiratory Respiratory: bilateral: CTA - Cardiovascular Rhythm: regular Heart sounds: normal: S1, S2 - Integumentary Integumentary Comment(s): Biopsy site right breast with some ecchymosis and probable small hematoma no evidence of any infection Integumentary: Present: normal turgor - Musculoskeletal Musculoskeletal: Present: gait normal Assessment and Plan Assessment: Impression: Radiographic abnormality right breast status post ultrasound-guided core biopsy, pathology consistent with fat necrosis/scar with calcification, chronic inf lammation and histiocytes Postprocedure small hematoma and ecchymosis Plan: Repeat right breast mammogram and ultrasound in 6 months with examination at that time Nothing which would warrant interventional biopsy at this time CC: Antoni Flores
== END ==
LOC: WWCWWP 10:07
PROVIDERS: ATTEND Surgery
DX: R92.8 Other abnormal and inconclusive findings on diagnostic imaging of breast

== ENCOUNTER → 2024-11-22 | Outpatient (CLI) | payer MEDICARE ==
--- NOTE | 2024-11-22 13:01 | XR ---
EXAMINATION TYPE: XR chest 2V DATE OF EXAM: 11/22/2024 12:53 PM COMPARISON: 09/22/2023 CLINICAL INDICATION: Female, 74 years old with history of R05.3 CHRONIC COUGH: Shortness of breath TECHNIQUE: XR chest 2V views of the chest are obtained. FINDINGS: Scattered senescent parenchymal changes noted. Hyperinflation compatible with COPD. No evidence for infiltrate. No evidence for atelectasis. Heart size is stable. Mediastinal structures are stable and grossly unremarkable. No evidence for hilar prominence. Degenerative changes dorsal spine. IMPRESSION: 1. No evidence for acute pulmonary disease. [facility], , 11/22/2024 12:59 PM
== END | disposition home or self-care (01) ==
LOC: RADXRMAIN 12:35
PROVIDERS: ATTEND Family Medicine
DX: R05.3 Chronic cough (principal)
CPT/HCPCS: 71046

== ENCOUNTER → 2024-11-30 | Outpatient (CLI) | payer MEDICARE ==
--- NOTE | 2024-12-18 03:38 | CE ---
CARDIAC ELECTROPHYSIOLOGY REPORT STUDY: Seven-day Holter monitor. INDICATION: Cardiac arrhythmia. The patient was monitored for 7 days. The baseline rhythm appeared to be sinus mechanism with an average heart rate of 80 beats per minute. Ventricular ectopic events and supraventricular ectopic events were rare and in less than 1% of the time. The patient did have 13 episodes of atrial tachycardia with the longest of 54 beats. CONCLUSION: 1. This is a 7-day Holter monitor. 2. The baseline rhythm appeared to be sinus mechanism with an average heart rate of 80 beats per minute. 3. Rare ventricular and supraventricular ectopic events. 4. The patient did have multiple episodes of atrial tachycardia with the longest of 54 beats. MMODL / IJN: [id number] /
== END | disposition home or self-care (01) ==
LOC: RADECHMAIN 07:52
PROVIDERS: ATTEND Student in an Organized Health Care Education/Training Program
DX: I47.19 Other supraventricular tachycardia (principal); R00.2 Palpitations
CPT/HCPCS: 93225

== ENCOUNTER → 2024-12-13 | Outpatient (CLI) | payer MEDICARE ==
--- NOTE | 2024-12-13 10:08 | MM ---
Reason for Exam: Follow-up at short interval from prior study. Last screening mammogram was performed 7 month(s) ago. Patient History: Menarche at age 11. First Full-Term at age 18. Postmenopausal. 06/11/2024, Benign US biopsy breast VAD RT on the right side. 06/11/2024, MG discontinued stereo core RT on the right side. Maternal aunt had breast cancer, age 80. Risk Values: Rhoda 5 year model risk: 1.5%. NCI Lifetime model risk: 3.3%. Prior Study Comparison: 11/28/2023 Left MG 3D diag mammo w/cad LT, [facility]. 05/28/2024 Bilateral MG 3D screening mammo w/cad, [facility]. 06/11/2024 Right MG diagnostic mammo RT wo CAD, [facility]. Tissue Density: Right: There are scattered areas of fibroglandular density. Findings: Analyzed By CAD. Chronic nodularity posterior upper outer quadrant right breast. Microclip 1:00 right breast at the site of residual coarse calcifications corresponding to biopsy-proven benign fat necrosis. Otherwise, no significant change. Overall Assessment: Benign, BI-RAD 2 Management: Screening Mammogram of both breasts in 6 months. Results were given to the patient verbally at the time of exam. Patient should continue monthly self-breast exams. A clinical breast exam by your physician is recommended on an annual basis. This exam should not preclude additional follow-up of suspicious palpable abnormalities. Note on Rhoda scores and lifetime risk: 1. A Rhoda score greater than 3% is considered moderate risk. If this is the case, consider specialist referral to assess eligibility for a risk reducing agent. 2. If overall lifetime risk for the development of breast cancer is 20% or higher, the patient may qualify for future screening with alternating mammogram and breast MRI. [facility], , 12/13/2024 10:04 AM. Electronically signed and approved by: Allan Dillon M.D. Radiologist
== END | disposition home or self-care (01) ==
LOC: RADMAMWWP 09:37
PROVIDERS: ATTEND Surgery
DX: R92.8 Other abnormal and inconclusive findings on diagnostic imaging of breast (principal); R92.321 Mammographic fibroglandular density, right breast; Z78.0 Asymptomatic menopausal state; Z80.3 Family history of malignant neoplasm of breast
CPT/HCPCS: 77065; G0279; 77061

== ENCOUNTER → 2024-12-30 | Outpatient (CLI) | payer MEDICARE ==
[2024-12-30 09:37] VITALS: BP 133/81; PULSE 75; RESP 17; TEMP 97.8
--- NOTE | 2024-12-30 09:39 | P.PN ---
Subjective Progress Note Date: 12/30/24 Principal diagnosis: fat necrosis/scar right breast mastodynia 12-05-23 pain left breast Jaimee is a 73 year old white female seen in consultation for Tamra Tracy regarding breast pain on 11-08-22. She had a bilateral mammogram 05-24-22 which led to a left breast ultrasound on 06-04-22, this led to a repeat ultrasound on 09-13-22. Her repeat ultrasound was felt to be BIRAD 2. She was having an aching sensation in her left breast in August 2022, this has improved. It was intermittent. It did not spread any place. It was more positional if she laid on that side. She did have a fall where she hit her left breast in the lateral aspect several months prior. She had bruising and ecchymosis at that time. She has never had any surgery on her breast. She does not feel any lumps in her breast at this time. She is not complaining of any nipple discharge. Discomfort that she had a left breast is less constant and has improved. bilateral mammogram on 05-26-23 BIRAD 0 diagnostic left breast mammogram requested; this was done on 05-29-23 and repeat in 6 months of the let breast recommended left breast mammogram 11-28-23 BIRAD 2 she is not complaining of any new lumps masses or nodules of concern in either breast She is not complaining of pain in her left breast at this time 06-03-24 Bilateral mammogram on 05-28-24 BIRAD 0; right breast ultrasound on 06-01-24 recommended a right breast stero biopsy radiographs personally reviewed and discussed with DR. Kang The breast pain has resolved. She is not complaining of any new lumps masses or nodules of concern in either breast. 12-29-24 Patient had an ultrasound core biopsy of the right breast on 06-11-25 which was fat necrosis and benign concordant. She was not able to have a stero biopsy secondary to the closeness to the skin. she comes today for repeat radiographic evaluation of the right breast. She is not complaining of any breast pain at this time. She is not complaining of any new lumps masses or nodules of concern in either breast. Caffiene: occasional nicotine: none stopped in 1990; used to smoke 2 packs/week for 10 years chocolate: occasional BCP: used them for 15 years, stopped about 32 hormones: none Family History: paternal grandfather: cancer ? type Hormonal History: menarche: 11 , breast fed: no, age at first : 18 menopause: 52 Surgical History: appy tonsil knee 2 c-sections resection of burst diverticuli/repeat surgery after the first for infection back fusion Medical History: none Social History: nicotine: as above alcohol: occasional drugs: none - Constitutional Constitutional: Denies chills, Denies fever - EENT Eyes: denies blurred vision, denies pain Ears: deny: decreased hearing, tinnitus Ears, nose, mouth and throat: Denies headache, Denies sore throat - Breasts Breasts: bilateral: as per HPI - Cardiovascular Cardiovascular: Denies chest pain, Denies shortness of breath - Gastrointestinal Gastrointestinal: Denies abdominal pain, Denies diarrhea, Denies nausea, Denies vomiting - Genitourinary (Female) Genitourinary: Denies dysuria, Denies hematuria - Menstruation Menstruation: Reports as per HPI - Musculoskeletal Comment: arthritis - Integumentary Integumentary: Denies pruritus, Denies rash - Neurological Neurological: Denies numbness, Denies weakness - Psychiatric Psychiatric: Denies anxiety, Denies depression - Endocrine Endocrine: Denies fatigue, Denies weight change - Hematologic/Lymphatic Comment: none - Allergic/Immunologic Allergic/Immunologic: Reports seasonal allergies Past Medical History Additional Past Medical History / Comment(s): hx skin cancer, History of Any Multi-Drug Resistant Organisms: None Reported Past Surgical History: Appendectomy, Section, Orthopedic Surgery, Tonsillectomy, Tubal Ligation Additional Past Surgical History / Comment(s): rt knee surgery, "surgery to remove burst diverticuli x 2 " Past Anesthesia/Blood Transfusion Reactions: No Reported Reaction Smoking Status: Former smoker - Past Family History Mother Family Medical History: No Reported History Medications and Allergies Home Medications Medication Instructions Recorded Confirmed Type C,E,Zinc,Copper 11/Pvmzz4w/Lut 1 each PO DAILY 04/13/20 11/08/22 History [Ocuvite Adult 50 Plus Softgel] Calcium Carbonate/Vitamin D3 2 each PO DAILY 04/13/20 11/08/22 History [Calcium 600-Vit D3 800 Caplet] Cetirizine HCl [Zyrtec] 10 mg PO DAILY 04/13/20 11/08/22 History Glucosam/Kareem-Msm1/C/Ruperto/Bosw 2 each PO DAILY 04/13/20 11/08/22 History [Glucosamine-Chondroitin Tablet] L.acidoph,Paracasei, B.lactis 1 each PO DAILY 04/13/20 11/08/22 History [Probiotic] Magnesium 200 mg PO DAILY 04/13/20 11/08/22 History Multivit-Min/Iron/Folic/Lutein 1 each PO DAILY 04/13/20 11/08/22 History [Centrum Silver Women Tablet] [place]-3 Fatty Acids [[place]-3] 1,000 mg PO DAILY 04/13/20 11/08/22 History Allergies Allergy/AdvReac Type Severity Reaction Status Date / Time Sulfa (Sulfonamide Allergy Rash/Hives Verified 05/03/20 10:21 Antibiotics) Objective - Constitutional General appearance: Present: cooperative - EENT Eyes: Present: EOMI ENT: Present: hearing grossly normal - Neck Neck: Present: normal ROM - Respiratory Respiratory: bilateral: CTA - Cardiovascular Heart sounds: normal: S1, S2 - Integumentary Integumentary: Present: normal turgor - Musculoskeletal Musculoskeletal: Present: gait normal - Psychiatric Psychiatric: Present: A&O x's 3, appropriate affect, intact judgment & insight - Additional findings Additional findings: Breast Exam: BRA: 42C Inspection: Biateral grade 2/3 ptosis; Patient: Right breast: Multi-positional exam fibrocystic changes no dominant masses or nodules of concern Right axilla: No adenopathy of concern Left breast: Multi-positional exam fibrocystic changes, mild tenderness to palpation in the upper outer quadrant region but no discrete masses or nodules of concern appreciated; fungal infection under the left breast Left axilla: No adenopathy of concern; Assessment and Plan Assessment: Impression: mastodynia resolved fungal infection under left breast bilateral mammogram 05-10-24 suspecious BIRAD 4, ultrasound 06-01-24 suspecious BIRAD 4 needs stero biopsy of the right breast Plan: sterobiopsy of the right breast nystatin under the left breast Risk of the procedure discussed with the patient. Risk include but are not limited to bleeding, infection, reaction to the anesthetic. If the tissue tissue specimen were felt to be discordant then further tissue acquisition may be necessary. She understands and wishes to proceed. Patient understands and agrees with the treatment plan. CC: Antoni Flores Additional CC's: Tamra Flores Objective - Constitutional General appearance: Present: cooperative - EENT Eyes: Present: EOMI ENT: Present: hearing grossly normal - Neck Neck: Present: normal ROM - Respiratory Respiratory: bilateral: CTA - Cardiovascular Rhythm: regular Heart sounds: normal: S1, S2 - Integumentary Integumentary: Present: normal turgor - Musculoskeletal Musculoskeletal: Present: gait normal - Psychiatric Psychiatric: Present: A&O x's 3, appropriate affect, intact judgment & insight - Additional findings Additional findings: Breast Exam: BRA: 42C Inspection: Biateral grade 2/3 ptosis; Patient: Right breast: Multi-positional exam fibrocystic changes no dominant masses or nodules of concern Right axilla: No adenopathy of concern Left breast: Multi-positional exam fibrocystic changes, mild tenderness to palpation in the upper outer quadrant region but no discrete masses or nodules of concern appreciated; fungal infection under the left breast Left axilla: No adenopathy of concern; Assessment and Plan Assessment: Impression: mastodynia resolved fungal infection under left breast bilateral mammogram 05-10-24 suspecious BIRAD 4, ultrasound 06-01-24 suspecious BIRAD 4 needs stero biopsy of the right breast; core biopsy done via ultrasound on 06-11-25 benign concordant right breast mammogram on 12-13-24 BIRAD 2 We have discussed that the original recommendation from her June biopsy was a repeat ultrasound of the right breast, however the radiologist seem to feel that the mammogram was sufficient. If there is any concern in May she will have both mammogram and ultrasound of the right breast. Plan: bilateral mammogram in May 2025, with appointment follow up sooner if any concerns nystatin under the left breast Cc: Antoni Flores
== END ==
LOC: WWCWWP 08:44
PROVIDERS: ATTEND Surgery
DX: Z12.31 Encounter for screening mammogram for malignant neoplasm of breast (principal); N64.4 Mastodynia; Z87.891 Personal history of nicotine dependence; Z88.2 Allergy status to sulfonamides

== ENCOUNTER → 2025-03-24 | Outpatient (CLI) | payer MEDICARE ==
[2025-03-24 15:12] LABS: HCT 38.8 % (37.2-46.3); HGB 12.6 g/dL (12.0-15.0); MCH 31.7 pg (27.0-32.0); MCHC 32.5 g/dL (32.0-37.0); MCV 97.5 FL (80.0-97.0); NRBC Per 100 WBC 0 X 10*3/uL (0.00-0.01); Platelet Count 301 X 10*3/uL (140-440); RBC 3.98 X 10*6/uL (4.10-5.20); RDW 12.8 % (11.5-14.5); WBC 7.44 X 10*3/uL (4.50-10.00)
[2025-03-24 15:18] LABS: ALT 15 U/L (8-44); AST 23 U/L (13-35); Albumin 4.3 g/dL (3.8-4.9); Albumin/Globulin Ratio 1.79 Ratio (1.60-3.17); Alkaline Phosphatase 94 U/L (41-126); Anion Gap 10.90 mmol/L (4.00-12.00); BUN/Creat Ratio 19.20 Ratio (12.00-20.00); Blood Urea Nitrogen 9.6 mg/dL (9.0-27.0); Calcium 9.5 mg/dL (8.7-10.3); Carbon Dioxide 26.1 mmol/L (21.6-31.8); Chloride 106 mmol/L (96-109); Globulin 2.4 g/dL (1.6-3.3); Glucose 92 mg/dL (70-110); Potassium 3.8 mmol/L (3.5-5.5); Sodium 143 mmol/L (135-145); Total Protein 6.7 g/dL (6.2-8.2)
== END | disposition home or self-care (01) ==
LOC: LABWHC1 10:07
PROVIDERS: ATTEND Student in an Organized Health Care Education/Training Program
DX: D72.9 Disorder of white blood cells, unspecified (principal); R79.89 Other specified abnormal findings of blood chemistry
CPT/HCPCS: 36415; 80053; 85027

== ENCOUNTER 2025-04-04 10:20 | Day surgery (SDC) | payer MEDICARE ==
[2025-03-30 14:46] VITALS: BMI 24.7
[~2025-04-04 10:20] MED LIST changes: +ALPRAZolam 0.25 MG TAB PO PRN; +ALPRAZolam 0.5 MG TAB PO PRN; +ASPIRIN 325 MG TAB PO STA; +HEPARIN SODIUM,PORCINE (1 ML) 2,500 UNIT in SODIUM CHLORIDE 0.9% 250 ML IRRIGATION PRN; +HEPARIN SODIUM,PORCINE 10,000 UNIT in SODIUM CHLORIDE 0.9% 1,000 ML IRRIGATION PRN; -LACTATED RINGERS 1,000 ML IV SCH; -LIDOCAINE 1% (10MG/ML) FOR IV START INTRADERMA PRN; -MOXIFLOXACIN HCL 0.5% DROPS 3 ML BTL OP ONE; +NITROGLYCERIN SL TABS 0.4 MG TAB SUBLINGUAL PRN; +SODIUM CHLORIDE 0.9% 1,000 ML in EMPTY BAG 1 BAG IV SCH; -TETRACAINE 0.5% OPHTH (PF) DROPS 4 ML BTL OP ONE; -TIMOLOL 0.5% OPHTH DROPS 5 ML BTL OP ONE
[2025-04-04 10:52] VITALS: RESP 16; TEMP 98.3
[2025-04-04] MEDS: LIDOCAINE 2% (PF) 20 MG/ML 5 ML VIAL SQ ONE (11:05)
[2025-04-04] MEDS: fentaNYL (PF) 50 MCG/1 ML VIAL IVP ONE (11:05)
[2025-04-04] MEDS: MIDAZOLAM 2 MG/2 ML VIAL IVP ONE (11:05)
[2025-04-04] MEDS: HEPARIN SODIUM 1,000 UN/ML (10ML VL) IVP ONE (11:11)
[2025-04-04] MEDS: VERAPAMIL 2.5 MG/ML 4 ML VIAL INTRAARTER ONE (11:11)
[2025-04-04] MEDS: IOPAMIDOL-370 100ML BTL INTRATHECA ONE (11:20)
[2025-04-04] MEDS: HEPARIN SODIUM,PORCINE 10,000 UNIT in SODIUM CHLORIDE 0.9% 1,000 ML IRRIGATION ONE (11:26)
[2025-04-04] MEDS: SODIUM CHLORIDE 0.9% 1,000 ML IV ONE (11:26)
[2025-04-04] MEDS: HEPARIN SODIUM,PORCINE (1 ML) 2,500 UNIT in SODIUM CHLORIDE 0.9% 250 ML IRRIGATION ONE (11:26)
[2025-04-04] MEDS ORDERED: RX INFO: IV CONTRAST WAS GIVEN 1 EACH MISC MISCELLANE PRN (11:26)
--- NOTE | 2025-04-04 11:26 | P.CARDCATH ---
Date of Procedure: 04/04/25 Description of Procedure: DIAGNOSTIC CORONARY ANGIOGRAPHY and LEFT HEART CATH REPORT PROCEDURES PERFORMED: Left heart catheterization Selective coronary angiography Moderate conscious sedation 11 mins [Ultrasound assisted] Right radial access INDICATION: Abnormal stress test BRIEF HPI: 74-year-old female was seen in the office because of palpitation symptoms along with increased fatigue and shortness of breath with exertion. For this we performed a Holter monitor which showed PACs and PVCs. He also performed a stress test which showed ST depressions of 1 to 2 mm at peak stress in inferolateral leads along with inferolateral and inferior wall hypokinesia at peak stress. For this she was scheduled for heart catheterization procedure. CONSENT: I have explained the procedural steps of above-mentioned procedures in layman's terms to the patient. I discussed the risks (including but not limited to stroke, emergent vascular or cardiac surgery or ), benefits and alternative therapies for the above-mentioned procedure. I discussed the risks of sedation/analgesia and blood product administration (if indicated). The patient has indicated understanding and acceptance of these risks. Conscious Sedation: Patient's ECG, heart rate, blood pressure, pulse oximetry were monitored throughout the duration of procedure under my direct supervision. 1 mg Versed and 50 mcg Fentanyl were used for induction of moderate conscious sedation. Total duration of moderate concious sedation 11 minutes. PROCEDURAL DETAILS: Patient was prepped and draped in sterile fashion. 1% lidocaine was infiltrated over the right radial artery. Right radial access was obtained via modified seldinger technique. [Ultrasound was used for radial access]. Medications: 5mg of verapamil was administed in the radial sheet. 6000 Units of Heparin was administed once the catheter reached the aortic root Wires and Catheter used: J wire was advanced under fluroscopy to get to aortic root. 5 lao JR 4 diagnostic catheter was utilized obtain left ventricular pressure and pressure gradint across aortic valve. 5 lao JR 4 diagnostic catheter was used to selectively engage the right coronary ostium. 5 lao JL 3.5 diagnostic catheter was utilized to selectively engage the left coronary ostium. Angiographic images were reviewed in detail. Catheter and wire were removed. Radial sheet was flushed. The right radial sheath was removed and a TR band was placed. Patent hemostasis was achieved. The patient tolerated the procedure well. Patient was transported back to the post catheterization holding area in stable condition. TECHNICAL DETAILS Total radiation: 66 mGy Total fluro time: 1.4 minutes Total contrast used: Isovue [40 ml] Complications: [none] Estimated Blood loss: less than 15 ml HEMODYNAMICS: Aortic Pressure: 130/65 mmHg. LV pressure: 132/1 mmHg. LVEDP 10 mmHg. There was no significant gradient across the aortic valve. SELECTIVE CORONARY ARTERIOGRAPHY: LEFT MAIN: The left main is short and large caliber vessel. It bifurcates into the LAD and circumflex. Left main appears angiographically normal. LEFT ANTERIOR DESCENDING CORONARY ARTERY: LAD is large caliber reaches up to the apex. Proximal LAD is patent. Mid LAD has 40 to 50% disease near the bifurcation site of diagonal. LAD gives rise to 2 diagonal branch which is small caliber caliber long vessels and appears angiographically patent. LEFT CIRCUMFLEX CORONARY ARTERY: Nondominant moderate caliber vessel. Proximal LCx is patent. Mid CX gives rise to a small OM1 branch, medium caliber OM 2 branch and continues to be, and OM 3 branch. They appear angiographically patent. RIGHT CORONARY ARTERY: Dominant vessel, large caliber. Proximal RCA is patent. The junction of proximal and mid RCA has 30 to 40% luminal irregularities. Mid and distal RCA appears graphically patent. Distally bifurcates into small PDA and PL branch which appears angiographically patent. 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 125 cc fluids for 4 hours Discharge home in 4 hours Follow-up in the office in 1-2 weeks. Performing Physician Ez Guerra MD, FACC, RPVI Thank you for allowing [facility] to participate in this patient's care. Feel free to reach out in case of any followup questions.
[2025-04-04] MEDS ORDERED: SODIUM CHLORIDE 0.9% 1,000 ML IV SCH (11:30)
[2025-04-04 17:53] VITALS: BP 131/66; PULSE 69
== END 2025-04-04 14:46 | disposition home or self-care (01) ==
LOC: CATHCVL 10:20
PROVIDERS: ATTEND Student in an Organized Health Care Education/Training Program
DX: I25.10 Atherosclerotic heart disease of native coronary artery without angina pectoris (principal); I49.3 Ventricular premature depolarization; R94.39 Abnormal result of other cardiovascular function study; F17.210 Nicotine dependence, cigarettes, uncomplicated
CPT/HCPCS: 93458; J2250; J1644 ×3; Q9967; J2003; J3010